=== PATIENT | female | born 1970 | race Two or more races ===

== ENCOUNTER 2024-09-01 09:50 | Day surgery (SDC) | payer MEDICAID, SELFPAY ==
--- NOTE | 2024-08-31 07:56 | EKG_ITS ---
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
[2024-08-31 09:42] LABS: HCG Qualitative,Urine Negative
[2024-09-01] VITALS (11 sets, daily range): BP systolic 123–145; BP diastolic 82–99; PULSE 75–93; RESP 13–20; TEMP 36.2–36.6; O2SAT 95–100; BMI 30.7
[2024-09-01] MEDS: RINGERS LACTATED 1000 ML 1,000 ML 60 ML IV (12:22)
[2024-09-01] MEDS: fentaNYL CIT INJ 50 mCg/ML AMP 2ML (ASD USE ONLY) IVP (12:23)
[2024-09-01] MEDS: BENZOCAINE 20% (Hurricaine) SPRAY 1 DOSE TOP (12:23)
[2024-09-01] MEDS: DiphenhydrAMINE INJ 50 MG/ML VIAL 25 MG IVP (12:26)
[2024-09-01] MEDS: MIDAZOLAM INJ 1 MG/ML VIAL 2 ML (ASD USE ONLY) 2 MG IVP (12:32)
== END 2024-09-01 13:42 | disposition home or self-care (01) ==
PROVIDERS: PCP Physician Assistant; Referring Provider Specialist; Visit Provider Specialist
PROC: (CPT 43239; principal; 2024-09-01 12:15)
DX: K20.90 Esophagitis, unspecified without bleeding (principal); Z87.19 Personal history of other diseases of the digestive system; K29.50 Unspecified chronic gastritis without bleeding; Z01.810 Encounter for preprocedural cardiovascular examination; K31.89 Other diseases of stomach and duodenum
CPT/HCPCS: 43239; 81025; 93005; J1200; J2250; J3010; J7120; A9270